=== PATIENT | female | born 1965 | race Two or more races ===

== ENCOUNTER 2017-02-27 23:38 | Emergency (ER) | payer OTHER ==
[~2017-02-27] VITALS: Ht 165.1 cm; Wt 66.0 kg
[2017-02-28 01:13] VITALS: BP 128/64
== END 2017-02-28 02:26 | disposition home or self-care (01) ==
LOC: ER 23:45
DX: T16.1XXA Foreign body in right ear, initial encounter (principal); Y93.89 Activity, other specified; X58.XXXA Exposure to other specified factors, initial encounter; Y92.89 Other specified places as the place of occurrence of the external cause; R73.03 Prediabetes; J45.909 Unspecified asthma, uncomplicated; Z88.0 Allergy status to penicillin; Z88.6 Allergy status to analgesic agent; Z88.5 Allergy status to narcotic agent; Z88.2 Allergy status to sulfonamides
CPT/HCPCS: 69200; 99284

== ENCOUNTER 2019-02-20 05:41 | Emergency (ER) | payer OTHER, MEDICAID ==
[~2019-02-20] VITALS: Ht 165.1 cm; Wt 61.0 kg
[2019-02-20 06:50] LABS: EOSINOPHILS % 0.2 % (0.0-5.0); HEMATOCRIT. 37.3 % (36.0-48.0); HEMOGLOBIN. 12.1 g/dL (12.0-16.0); LYMPHOCYTES % 36.5 % (20.0-50.0); MEAN PLATELET VOLUME 10.3 fl (7.4-10.4); MONOCYTES % 5.7 % (2.0-8.0); NEUTROPHILS % 56.6 % (40.0-76.0); PLATELET 196 x1000/uL (130-400); RED CELL DISTRIBUTION WIDTH 14.9 % (11.6-14.6)
[2019-02-20 06:54] LABS: CHLORIDE 109 mEq/L (98-107)
[2019-02-20] MEDS ORDERED: ACETAMINOPHEN 325MG TABLET PO ONE (08:15)
[2019-02-20 10:47] VITALS: BP 107/52
[2019-02-20] MEDS ORDERED: OXYCODONE HCL/ACETAMINOPHEN 5/325MG TABLET PO ONE (12:45)
== END 2019-02-20 13:02 | disposition short-term general hospital (02) ==
LOC: ER 05:58
DX: R07.89 Other chest pain (principal); M79.602 Pain in left arm; R53.1 Weakness; J45.909 Unspecified asthma, uncomplicated; Z86.73 Personal history of transient ischemic attack (TIA), and cerebral infarction without residual deficits
CPT/HCPCS: 36415; 71045; 83880; 84484; 85379; 93005; 99285